=== PATIENT | female | born 1960 | race Caucasian/White ===

== ENCOUNTER 2018-09-10 10:25 | Emergency (ER) | payer SELFPAY ==
[~2018-09-10] VITALS: Ht 167.6 cm; Wt 68.0 kg
[2018-09-10 10:27] VITALS: Ht 167.6 cm; Wt 68.0 kg
[2018-09-10 11:21] LABS: CALCIUM 8.9 mg/dL (8.5-10.1); CARBON DIOXIDE 20.1 mmol/L (21-32); CHLORIDE SERUM 103 mmol/L (98-107); CREATININE SERUM 0.7 mg/dL (0.6-1.0); GFR1 > 60 mL/min; GLUCOSE SERUM 199 mg/dL (74-106); POTASSIUM SERUM 3.5 mmol/L (3.5-5.1); SODIUM SERUM 138 mmol/L (136-145)
[2018-09-10 11:30] LABS: PLATELET COUNT 317 x10^3mcL (130-400)
[2018-09-10 11:31] LABS: RED CELL DISTRIBUTION WIDTH 14.8 % (11.5-14.5)
[2018-09-10 11:33] LABS: ALBUMIN 3.4 g/dL (3.4-5.0); ALKALINE PHOSPHATASE 104 U/L (46-116); ALT/SGPT 21 U/L (14-59); AST/SGOT 16 U/L (15-37); BILIRUBIN TOTAL 0.27 mg/dL (0.20-1.00); LIPASE 247 IU/L (73-393); MAGNESIUM 1.5 mg/dL (1.8-2.4); T4(THYROXINE) 7.1 ug/dL (4.7-13.3); TOTAL PROTEIN, SERUM 7.5 g/dL (6.4-8.2)
[2018-09-10 11:34] VITALS: BP 153/105
[2018-09-10 11:34] LABS: CHOLESTEROL 203 mg/dL (<200); HDL CHOLESTEROL 64 mg/dL (40-60)
[2018-09-10 11:40] LABS: UA SPECIFIC GRAVITY 1.015 (1.005-1.035); microscopic required? YES; urine erythrocyte 1+ (NEGATIVE)
[2018-09-10 11:45] VITALS: BP 153/105
[2018-09-10 11:55] LABS: AMPHETAMINE QUAL UR NONE DETECTED (See below)
[2018-09-10 14:12] LABS: BAND NEUTROPHIL 94 % (0-10); BASOPHIL 0 % (0-2); SEGMENTED NEUTROPHILS 4 % (37-75)
[2018-09-10 14:13] LABS: PLATELET MORPHOLOGY PLATELETS NORMAL; rbc morphology (normal/abnorm) ABNORMAL (NORMAL)
== END 2018-09-10 11:45 | disposition short-term general hospital (02) ==
LOC: ED 10:25
PROVIDERS: Emergency Medicine
DX: R40.4 Transient alteration of awareness (principal); F17.210 Nicotine dependence, cigarettes, uncomplicated; I60.9 Nontraumatic subarachnoid hemorrhage, unspecified; I10 Essential (primary) hypertension
CPT/HCPCS: G0480; J0330; J1953; J2060; J3490; J7030; Q0092